=== PATIENT | male | born 1995 | race Hispanic/Latino ===

== ENCOUNTER 2017-05-04 10:18 | Emergency (ER) | payer SELFPAY ==
[2017-05-04] MEDS ORDERED: Bupivacaine 0.5% 10 ML VIAL ONE (10:33)
== END 2017-05-04 10:57 | disposition home or self-care (01) ==
LOC: SCSER 10:18
DX: L05.01 Pilonidal cyst with abscess (principal); E03.9 Hypothyroidism, unspecified
CPT/HCPCS: 10080; J3490

== ENCOUNTER 2018-01-26 13:34 | Emergency (ER) | payer SELFPAY ==
[2018-01-26] MEDS ORDERED: Fluorescein Opthalmic Strip ONE (14:41)
[2018-01-26] MEDS ORDERED: Proparacaine 0.5% Opth 15 ML BOT ONE (14:41)
== END 2018-01-26 15:15 | disposition home or self-care (01) ==
LOC: ERS 13:34
DX: H10.9 Unspecified conjunctivitis (principal); E03.9 Hypothyroidism, unspecified; Z79.899 Other long term (current) drug therapy
CPT/HCPCS: 99282

== ENCOUNTER 2020-06-28 21:41 | Observation (INO) | payer SELFPAY ==
[2020-06-28] MEDS ORDERED: Acetaminophen 500 MG TAB ONE (22:04)
[2020-06-28 22:57] LABS: #Eosinphils 0.1 thou/uL (0.0-0.7); #Lymphocytes 1.1 thou/uL (1.20-3.40); #Monocytes 0.8 thou/uL (0.11-0.59); #Neutrophils 6.9 thou/uL (1.40-6.50); %Basophils 0.1 % (0.0-1.0); %Eosinophils 0.9 % (0.0-10.0); %Lymphocytes 12.2 % (21.0-51.0); %Neutrophils 77.7 % (42.0-75.0); Hemoglobin 14.5 g/dL (14.0-18.0); Mean Corpuscular HGB CONC 31.8 g/dL (32.0-36.0); Mean Corpuscular Hemoglobin 26.6 pg (27.0-31.0); Mean Corpuscular Volume 83.7 fL (78.0-98.0); Platelet Count 187 thou/uL (130-400); RBC Distribution Width 12.7 % (11.5-14.5); Red Blood Cell (RBC) Count 5.46 mill/uL (4.70-6.10); White Blood Cell (WBC) Count 8.9 thou/uL (4.8-10.8)
[2020-06-28 23:19] LABS: ALT (SGPT) 102 U/L (8-55); AST (SGOT) 49 U/L (5-34); Albumin 4.1 g/dL (3.5-5.0); Alkaline Phosphatase 100 U/L (40-110); Anion Gap 13 mmol/L (10-20); BUN (Urea Nitrogen) 8 mg/dL (8.9-20.6); Bilirubin, Total 0.2 mg/dL (0.2-1.2); Calc. Creatinine Clearance 0 mL/min (70-130); Calcium 8.8 mg/dL (7.8-10.44); Carbon Dioxide 26 mmol/L (22-29); Chloride 104 mmol/L (98-107); Globulin 3.1 g/dL (2.4-3.5); Glucose 99 mg/dL (70-105); Potassium 4.2 mmol/L (3.5-5.1); Protein, Total 7.2 g/dL (6.0-8.3); Sodium 139 mmol/L (136-145)
--- NOTE | 2020-06-29 00:15 | RAD ---
EXAM: CHEST ONE VIEW HISTORY: Covid positive. Increasing shortness of breath. COMPARISON: 12/10/2013 FINDINGS: The heart is enlarged. Pulmonary vasculature is within normal limits. This exam is underpenetrated li miting evaluation of the lungs, but no obvious parenchymal opacity is able to be delineated and there is no pleural effusion seen. The osseous structures are intact. IMPRESSION: 1. Cardiomegaly. 2. No acute cardiopulmonary process. Chest radiographs exhibit low sensitivity for subtle groundglass opacities which can be seen with Covid pneumonia.
[2020-06-29] MEDS ORDERED: Ketorolac Tromethamine 30 MG/ML VIAL ONE (00:32)
[2020-06-29] MEDS ORDERED: Ondansetron ODT 4 MG TAB SL PRN (05:45)
[2020-06-29] MEDS ORDERED: Ondansetron PF 4 MG/2 ML Vial IVP PRN (05:45)
[2020-06-29] MEDS ORDERED: Acetaminophen 325 MG TAB PO PRN (05:45)
--- NOTE | 2020-06-29 07:54 | CT ---
PRELIMINARY REPORT/[facility]/EMERGENCY AFTER HOURS PROCEDURE: Receipt of this report by the clinical staff was confirmed with Alia David MD by Rhett Churchill on Jun 29, 2020 01:48:00 TECHNICIAN PREVENTATIVE MEDICINE. Addendum electronically signed by Viviana Churchill on June 29, 2020 1:48:[address]IAN PREVENTATIVE MEDICINE CT ANGIOGRAM OF THE CHEST WITH IV CONTRAST CLINICAL HISTORY: Cough, intermittent headaches, loss of taste and smell, and shortness of breath TECHNIQUE: Serial axial images obtained. Sagittal reconstructed images obtained. Coronal reconstructed images obtained. For CTA 3D image post-processing, MIPs were performed. Exam is performed with 86 mL of Isovue-370 intravenous contrast. Per PQRS, CT exam is performed using one or more of the following dose reduction techniques: Automate d exposure control, adjustment of the mA and/or KV according to patient size, or use of iterative rec onstruction techniques. COMPARISON: None FINDINGS: Suboptimal evaluation due to motion artifact. Suboptimal evaluation due to suboptimal opacification o f the pulmonary arteries. No gross pulmonary embolism is seen within the limits of the exam. Negative for aortic aneurysm or aortic dissection. There is normal caliber of the pulmonary artery trunk in relation to the aorta. A normal-sized heart is seen. No pleural effusion. Patchy infiltrates in bilateral lung quintanilla are seen suggesting early pneumonia. Imaging features can be seen with early (COVID-19) pneumonia, though are nonspecific and can occur with a variety of infe ctious and noninfectious processes. Negative for pneumothorax. Mild fatty infiltration of the liver is seen. Moderate disc space narrowing and osteophyte formation of the thoracic spine is seen at multiple leve ls. The rest of the solid organs, viscera and bones are unremarkable. IMPRESSION: 1. Patchy infiltrates in bilateral lung quintanilla are seen suggesting early pneumonia. Imaging features can be seen with early (COVID-19) pneumonia, though are nonspecific and can occur with a variety of i nfectious and noninfectious processes. 2. No gross pulmonary embolism is seen within the limits of the exam. Negative for aortic aneurysm or aortic dissection. ELECTRONICALLY SIGNED BY: Romero Carreon MD Jun 29, 2020 1:44:06 AM TECHNICIAN PREVENTATIVE MEDICINE This report is intended for review by the ordering physician only, in accordance of law. If you recei ve this report in error, please call [facility] at [phone]. FINAL REPORT EMERGENCY AFTER HOURS CTA CHEST: Axial tomograms obtained with multiplanar reconstruction and 3D postprocessing. FINDINGS/IMPRESSION: No evidence of proximal pulmonary embolus. There are patchy somewhat nodular ground-glass opacities seen bilaterally, concerning for COVID pneum onia. I am in agreement with the preliminary report issued by [facility]. POS: MATILDEW
[2020-06-29] MEDS ORDERED: Calcium Carbonate 500 MG ChewTAB PO PRN (09:00)
[2020-06-29] MEDS ORDERED: HYDROcodone/Acetaminophen 5/325 mg Tablet PO PRN (09:00)
[2020-06-29] MEDS ORDERED: Bisacodyl 5 MG TAB PO PRN (09:00)
[2020-06-29] MEDS ORDERED: Senokot S 8.6-50 MG TAB PO PRN (09:00)
--- NOTE | 2020-06-29 09:05 | PDOC.HHP ---
Hospitalist HPI Short of breath History of Present Illness: Patient history pleasant 24 years old gentleman who has significant past medical history of morbid obesity with BMI of 74, hypothyroidism, who presented to ED with complaint of short of breath. His symptoms including generalized fatigue, and loss of sense of taste started about 1 week ago, and tested positive 4 days ago for Covid. Initial work-up in the ED, including CTA chest, was negative for PE. However it did show evidence of early bilateral infiltrate consistent with history of COVID-19 infection. He also found slightly hypoxic on room air. Given his comorbidities including morbid obesity, hospitalist was asked to admit the patient for further management. Patient report that he lives with his cousin, who was also tested positive for Covid. Allergies/Adverse Reactions: Allergy/AdvReac Type Severity Reaction Status Date / Time No Known Drug Allergies Allergy Verified 06/29/20 05:48 Home Medications: Medication Instructions Recorded Confirmed Type Levothyroxine Sodium [Synthroid] 50 mcg PO DAILY 06/29/20 06/29/20 History Past History: PMHx: 1. Hypothyroidism 2. Morbid obesity with BMI of 74 PSHx: 1. None FHx: 1. Significant for mother with history of diabetes Social: Patient denies of smoking, alcohol, or recreational drug use. Hospitalist HPI ROS Other: Complete review of systems have been assessed and discussed with the patient. Negative and positive pertinent symptoms noted in the HPI; ALL other systems are reviewed and negative. Hospitalist Exam Vitals: Vital Signs (12 hours) Temp Pulse Resp BP Pulse Ox 06/29/20 08:00 98 F 06/29/20 07:59 98.5 F 105 H 18 128/79 92 L 06/29/20 05:36 98.7 F 110 H 22 H 137/83 93 L Weight Weight 459 lb 1.6 oz General Appearance: NAD Eye: PERRL ENT: normocephalic atraumatic Neck: supple Heart: RRR Respiratory: CTAB Gastrointestinal: soft Extremities: no cyanosis Skin: normal turgor Neurological: cranial nerve grossly intact Psychiatric: normal affect, normal behavior, A&O x 3 Hospitalist Results Result Diagrams: 06/28/20 22:48 06/28/20 22:48 Lab results: Laboratory Last Values WBC 8.9 thou/uL (4.8-10.8) 06/28/20 22:48 RBC 5.46 mill/uL (4.70-6.10) 06/28/20 22:48 Hgb 14.5 g/dL (14.0-18.0) 06/28/20 22:48 Hct 45.7 % (42.0-52.0) 06/28/20 22:48 MCV 83.7 fL (78.0-98.0) 06/28/20 22:48 MCH 26.6 pg (27.0-31.0) L 06/28/20 22:48 MCHC 31.8 g/dL (32.0-36.0) L 06/28/20 22:48 RDW 12.7 % (11.5-14.5) 06/28/20 22:48 Plt Count 187 thou/uL (130-400) 06/28/20 22:48 MPV 7.0 fL (7.4-10.4) L 06/28/20 22:48 Neutrophils % 77.7 % (42.0-75.0) H 06/28/20 22:48 Lymphocytes % 12.2 % (21.0-51.0) L 06/28/20 22:48 Monocytes % 9.0 % (0.0-10.0) 06/28/20 22:48 Eosinophils % 0.9 % (0.0-10.0) 06/28/20 22:48 Basophils % 0.1 % (0.0-1.0) 06/28/20 22:48 Neutrophils # 6.9 thou/uL (1.40-6.50) H 06/28/20 22:48 Lymphocytes # 1.1 thou/uL (1.20-3.40) L 06/28/20 22:48 Monocytes # 0.8 thou/uL (0.11-0.59) H 06/28/20 22:48 Eosinophils # 0.1 thou/uL (0.0-0.7) 06/28/20 22:48 Basophils # 0.0 thou/uL (0.0-0.2) 06/28/20 22:48 Sodium 139 mmol/L (136-145) 06/28/20 22:48 Potassium 4.2 mmol/L (3.5-5.1) 06/28/20 22:48 Chloride 104 mmol/L (98-107) 06/28/20 22:48 Carbon Dioxide 26 mmol/L (22-29) 06/28/20 22:48 Anion Gap 13 mmol/L (10-20) 06/28/20 22:48 BUN 8 mg/dL (8.9-20.6) L 06/28/20 22:48 Creatinine 0.92 mg/dL (0.7-1.3) 06/28/20 22:48 Estimated GFR (MDRD) Greater than 90 06/28/20 22:48 Glucose 99 mg/dL (70-105) 06/28/20 22:48 Calcium 8.8 mg/dL (7.8-10.44) 06/28/20 22:48 Total Bilirubin 0.2 mg/dL (0.2-1.2) 06/28/20 22:48 AST 49 U/L (5-34) H 06/28/20 22:48 ALT 102 U/L (8-55) H 06/28/20 22:48 Alkaline Phosphatase 100 U/L (40-110) 06/28/20 22:48 Serum Total Protein 7.2 g/dL (6.0-8.3) 06/28/20 22:48 Albumin 4.1 g/dL (3.5-5.0) 06/28/20 22:48 Globulin 3.1 g/dL (2.4-3.5) 06/28/20 22:48 Albumin/Globulin Ratio 1.3 g/dL (1.2-2.2) 06/28/20 22:48 CT scan - chest Status: image reviewed by me, report reviewed by me Chest x-ray Status: image reviewed by me Additional Comments: Negative for acute cardiopulmonary process Hospitalist H&P A/P (1) Acute respiratory failure with hypoxia Code(s): J96.01 - ACUTE RESPIRATORY FAILURE WITH HYPOXIA Status: Acute (2) Pneumonia due to COVID-19 virus Code(s): U07.1 - COVID-19; J12.82 - PNEUMONIA DUE TO CORONAVIRUS DISEASE 2019 Status: Acute (3) Hypothyroidism Code(s): E03.9 - HYPOTHYROIDISM, UNSPECIFIED Status: Acute (4) Morbid obesity with BMI of 70 and over, adult Code(s): E66.01 - MORBID (SEVERE) OBESITY DUE TO EXCESS CALORIES; Z68.45 - BODY MASS INDEX [BMI] 70 OR GREATER, ADULT Status: Acute Plan: The patient is a pleasant 24 years old gentleman with significant past medical histories of hypothyroidism, morbid obesity with BMI of 74, presented to ED with 5-day history of short of breath, he was tested positive for Covid 3 days ago. Acute hypoxic respiratory failure secondary to COVID-19 pneumonia -His symptoms appear to be mild, however he has significant risk factor given his super morbid obesity. We will continue with O2 supplement, wean as tolerated. -Start on Decadron, vitamin C/D/zinc. -Lovenox for DVT prophylaxis. PPI for GI ppx. Pneumonia due to COVID-19 -Management as above Hypothyroidism -Resume home medication, levothyroxine Morbid obesity with BMI of 24 -Aggressive risk factor modification is recommended
[2020-06-29] MEDS ORDERED: Polyethylene Glycol 3350 17 GM Packet PO PRN (09:20)
[2020-06-29] MEDS: Dexamethasone 4 mg/ml Vial SLOW IVP SCH (09:28)
[2020-06-29] MEDS: Enoxaparin Sodium 40 MG/0.4 ML SYRINGE SC SCH ×2 (09:28→21:22)
[2020-06-29] MEDS: Zinc Sulfate 220 MG CAP PO SCH (09:28)
[2020-06-29] MEDS: Ascorbic Acid 500 mg Chewable Tablet PO SCH (09:34)
[2020-06-29] MEDS ORDERED: Iopamidol-370 76% 500 ML 1 ML ONE (10:02)
[2020-06-29] MEDS ORDERED: Benzonatate 100 MG CAP PO PRN (16:33)
[2020-06-29] MEDS ORDERED: guaiFENesin/Codeine 200 mg/20 mg 10 ml Cup PO PRN (16:33)
[2020-06-29] MEDS ORDERED: Prevnar 13-Val Conj/PF 0.5 ML SYRINGE IM ONE (21:00)
[2020-06-29] MEDS: guaiFENesin ER 600 MG TAB PO SCH (21:22)
[2020-06-30 05:14] VITALS: BMI 73.7
[2020-06-30] MEDS ORDERED: Levothyroxine Sodium 50 MCG TAB PO SCH (06:00)
[2020-06-30 06:16] LABS: Chloride 104 mmol/L (98-107); Potassium 4.2 mmol/L (3.5-5.1); Sodium 139 mmol/L (136-145)
[2020-06-30 06:19] LABS: ALT (SGPT) 90 U/L (8-55); AST (SGOT) 44 U/L (5-34); Alkaline Phosphatase 84 U/L (40-110); BUN (Urea Nitrogen) 12 mg/dL (8.9-20.6); Bilirubin, Total 0.3 mg/dL (0.2-1.2); Calc. Creatinine Clearance 381 mL/min (70-130); Calcium 9.1 mg/dL (7.8-10.44); Carbon Dioxide 25 mmol/L (22-29); Globulin 3.2 g/dL (2.4-3.5); Glucose 103 mg/dL (70-105); Protein, Total 7.2 g/dL (6.0-8.3)
[2020-06-30 06:22] LABS: Anion Gap 14 mmol/L (10-20)
[2020-06-30] MEDS: Ascorbic Acid 500 mg Chewable Tablet PO SCH (08:35)
[2020-06-30] MEDS: Enoxaparin Sodium 40 MG/0.4 ML SYRINGE SC SCH (08:35)
[2020-06-30] MEDS: Dexamethasone 4 mg/ml Vial SLOW IVP SCH (08:35)
[2020-06-30] MEDS: Zinc Sulfate 220 MG CAP PO SCH (08:35)
[2020-06-30] MEDS: guaiFENesin ER 600 MG TAB PO SCH (08:35)
[2020-06-30] MEDS ORDERED: Cholecalciferol (Vitamin D3) 400 UNITS TAB PO SCH (09:00)
--- NOTE | 2020-06-30 10:30 | PDOC.DS.DS ---
Provider Date of Admission: 06/29/20 05:31 Date of Discharge: 06/30/20 Admitting Provider: Navi Parisi MD Consultations: None Primary Care Physician: KAREN LEVY MD Course Hospital Course: Patient is a pleasant 24 years old gentleman who has significant past medical history of morbid obesity with BMI of 74, hypothyroidism, who presented to ED with complaint of short of breath. His symptoms including generalized weakness, loss sense of taste about a week ago, he was tested positive for Covid about 4 days prior to admission. Initial work-up in the ED including CTA chest was negative for PE. However, it did show that early bilateral infiltrate consistent with COVID-19 infection. He was found hypoxic with exertion. For that reason hospitalist was asked to admit the patient for observation. Patient was placed on Decadron, vitamin C/D/zinc. He was able to wean off to with room air. He is feeling better, this time, patient stable to discharge home with taper steroid and empiric abx for 5 days. Return to ED if symptoms recurs or worsen. Resuscitation Status: 06/29/20 09:00 Resuscitation Status Routine Resuscitation Status: FULL: Full Resuscitation Lab Results: 06/28/20 22:48 06/30/20 05:09 Abnormal Lab Results - Last 48 hrs 06/28/20 22:48: BUN 8 L, AST 49 H, ALT 102 H 06/28/20 22:48: MCH 26.6 L, MCHC 31.8 L, MPV 7.0 L, Neutrophils % 77.7 H, Lymphocytes % 12.2 L, Neutrophils # 6.9 H, Lymphocytes # 1.1 L, Monocytes # 0.8 H 06/30/20 05:09: AST 44 H, ALT 90 H Vitals: Vital Signs (12 hours) Temp Pulse Resp BP BP Pulse Ox 06/30/20 07:57 98.0 F 93 16 140/83 97 06/30/20 05:39 97.5 F L 91 18 149/78 H 93 L 06/30/20 00:00 98.5 F 87 18 149/77 H 91 L Weight Weight 457 lb Physical Exam: The patient was seen and examined on the day of discharge. General Appearance: NAD Eye: PERRL ENT: normocephalic atraumatic Neck: supple Respiratory: CTAB Cardiovascular: RRR Gastrointestinal: soft Extremities: no cyanosis Problem (1) Acute respiratory failure with hypoxia Code(s): J96.01 - ACUTE RESPIRATORY FAILURE WITH HYPOXIA Status: Acute (2) Pneumonia due to COVID-19 virus Code(s): U07.1 - COVID-19; J12.82 - PNEUMONIA DUE TO CORONAVIRUS DISEASE 2019 Status: Acute (3) Hypothyroidism Code(s): E03.9 - HYPOTHYROIDISM, UNSPECIFIED Status: Acute (4) Morbid obesity with BMI of 70 and over, adult Code(s): E66.01 - MORBID (SEVERE) OBESITY DUE TO EXCESS CALORIES; Z68.45 - BODY MASS INDEX [BMI] 70 OR GREATER, ADULT Status: Acute Time Spent in discharge related activities (mins): 30 Plan Prescriptions: Doxycycline Hyclate 100 mg PO Q12HR #10 tablet predniSONE 10 mg PO QAM-WM #30 tab Home Medications: Medication Instructions Recorded Confirmed Type Levothyroxine Sodium [Synthroid] 50 mcg PO DAILY 06/29/20 06/29/20 History Doxycycline Hyclate 100 mg PO Q12HR #10 tablet 06/30/20 Rx predniSONE 10 mg PO QAM-WM #30 tab 06/30/20 Rx Allergies: No Known Drug Allergies Allergy (Verified 06/29/20 05:48) PER ER NOTES Activity:: Activity as Tolerated Referrals: KAREN LEVY [Primary Care Provider] - 7 Days Disposition: HOME Quality CORE MEASURES:: N/A
[2020-06-30 11:35] VITALS: BP 145/84; TEMP 98.1
--- NOTE | 2020-07-01 21:19 | EKG ---
Test Reason : Blood Pressure : / mmHG Vent. Rate : 109 BPM Atrial Rate : 109 BPM P-R Int : 114 ms QRS Dur : 096 ms QT Int : 338 ms P-R-T Axes : 022 023 035 degrees QTc Int : 455 ms Sinus tachycardia Otherwise normal ECG Confirmed by JIN PHILLIPS ([id number]), website/blog editor TERRIE BELL ([id number]) on 07/01/2020 9:19:27 PM Referred By: JOSE EDUARDO PHILLIPS Confirmed By:JIN PHILLIPS
== END 2020-06-30 13:11 | disposition home or self-care (01) ==
LOC: ERS 21:41 → T4-B 06-29 05:31
PROVIDERS: ADMIT Student in an Organized Health Care Education/Training Program; ATTEND Family Medicine
DX: U07.1 COVID-19 (principal); J12.82 Pneumonia due to coronavirus disease 2019; J96.01 Acute respiratory failure with hypoxia; E03.9 Hypothyroidism, unspecified; F12.11 Cannabis abuse, in remission; E66.01 Morbid (severe) obesity due to excess calories; Z68.45 Body mass index [BMI] 70 or greater, adult; Z79.899 Other long term (current) drug therapy
CPT/HCPCS: 36415; 71045; 71275; 80053; 85025; 93005; 96372; 96374; 96375; 96376; G0378; J1100; J1650; J1885; Q9967

== ENCOUNTER 2020-07-04 03:24 | Inpatient (IN) | payer OTHER, SELFPAY ==
[2020-07-04] MEDS ORDERED: Dexamethasone 10 MG/ML VIAL ONE (04:19)
[2020-07-04 04:21] LABS: #Lymphocytes 1.7 thou/uL (1.20-3.40); #Monocytes 1.2 thou/uL (0.11-0.59); #Neutrophils 13.2 thou/uL (1.40-6.50); %Basophils 0.1 % (0.0-1.0); %Eosinophils 0.1 % (0.0-10.0); %Lymphocytes 10.8 % (21.0-51.0); %Monocytes 7.1 % (0.0-10.0); %Neutrophils 81.8 % (42.0-75.0); Hemoglobin 13.7 g/dL (14.0-18.0); Mean Corpuscular HGB CONC 32.3 g/dL (32.0-36.0); Mean Corpuscular Hemoglobin 27.1 pg (27.0-31.0); Mean Corpuscular Volume 83.8 fL (78.0-98.0); Mean Platelet Volume 6.8 fL (7.4-10.4); Platelet Count 213 thou/uL (130-400); RBC Distribution Width 12.5 % (11.5-14.5); Red Blood Cell (RBC) Count 5.05 mill/uL (4.70-6.10); White Blood Cell (WBC) Count 16.1 thou/uL (4.8-10.8)
[2020-07-04] MEDS ORDERED: Acetaminophen 500 MG TAB ONE (04:21)
[2020-07-04] MEDS ORDERED: Enoxaparin Sodium 100 MG/ML SYRINGE ONE ×3 (04:21→05:34)
[2020-07-04 04:28] LABS: PTT 26.8 sec (22.9-36.1); Prothrombin Time 13.2 sec (12.0-14.7)
[2020-07-04 04:29] LABS: D-Dimer Test 0.29 *mcg/mL (0.27-0.43)
[2020-07-04 04:44] LABS: ALT (SGPT) 81 U/L (8-55); AST (SGOT) 38 U/L (5-34); Albumin 3.7 g/dL (3.5-5.0); Alkaline Phosphatase 74 U/L (40-110); Anion Gap 16 mmol/L (10-20); BUN (Urea Nitrogen) 11 mg/dL (8.9-20.6); Bilirubin, Total 0.4 mg/dL (0.2-1.2); Calc. Creatinine Clearance 0 mL/min (70-130); Calcium 8.7 mg/dL (7.8-10.44); Carbon Dioxide 24 mmol/L (22-29); Chloride 101 mmol/L (98-107); Globulin 3.2 g/dL (2.4-3.5); Glucose 97 mg/dL (70-105); Potassium 3.9 mmol/L (3.5-5.1); Protein, Total 6.9 g/dL (6.0-8.3); Sodium 137 mmol/L (136-145)
[2020-07-04 05:00] LABS: Base Excess-Venous 1.1 mmol/L (-2.0 to 3.0); Bicarbonate (HCO3v) 24.5 mmol/L (22.0-28.0); CO2 Tension (PvCO2) 34.7 mmHg (40.0-50.0); Calcium, Ionized 0.97 mmol/L (1.15-1.33); Chloride 99 mmol/L (98-107); Hemoglobin - Calc 14.9 g/dL (14.0-18.0); Sodium 136 mmol/L (138-145); T. Carbon Dioxide 25.6 mmol/L (22.0-28.0); vO2 Saturation-calc 96.7 % (60.0-85.0)
[2020-07-04] MEDS ORDERED: Ondansetron PF 4 MG/2 ML Vial IVP PRN (05:51)
[2020-07-04] MEDS ORDERED: Senokot S 8.6-50 MG TAB PO PRN (05:51)
[2020-07-04] MEDS ORDERED: cefTRIAXone\\ROCEPHIN 1 GM in Sodium Chloride 0.9% 100 ML IVPB SCH (06:00)
[2020-07-04] MEDS ORDERED: methylPREDNISolone Sod Succ/PF 125 MG/2 ML VIAL IVP SCH (06:00)
[2020-07-04] MEDS ORDERED: Lorazepam 2 MG/ML VIAL ONE (06:15)
[2020-07-04] MEDS ORDERED: Vancomycin 1 GM/200 ML BAG ONE (06:20)
[2020-07-04] MEDS ORDERED: Ondansetron PF 4 MG/2 ML Vial ONE (06:20)
[2020-07-04] MEDS ORDERED: Sodium Chloride 0.9% 100 ML ONE (06:20)
[2020-07-04] MEDS ORDERED: Cefepime 2 GM VIAL ONE (06:20)
[2020-07-04] MEDS ORDERED: Morphine 4 MG/ML VIAL ONE (06:20)
[2020-07-04 07:47] LABS: Bilirubin Negative (Negative); Blood, Urine Negative (Negative); Clarity Clear (Clear); Glucose, Urine (Dipstick) Normal (Negative); Ketone, Urine Negative (Negative); Leukocyte Negative Leu/uL (Negative); Nitrite Negative (Negative); Protein, Urine (Dipstick) 100 mg/dL (Neg-Trace); RBC/HPF 0-3 HPF (0-3); Squamous Epithelial 0-3 HPF (0-3); Urobilinogen Normal mg/dL (Less than 2); WBC/HPF 0-3 HPF (0-3)
[2020-07-04 07:51] LABS: Bacteria/HPF 1+ HPF (None Seen)
[2020-07-04] MEDS ORDERED: Famotidine/PF 20 mg/2ml Vial SLOW IVP SCH (09:00)
[2020-07-04] MEDS ORDERED: Ivermectin 3 MG TAB PO SCH (09:00)
[2020-07-04] MEDS: Enoxaparin Sodium 40 MG/0.4 ML SYRINGE SC SCH ×2 (09:05→21:17)
[2020-07-04 09:06] LABS: Troponin I 0.011 ng/mL (< 0.028)
[2020-07-04] MEDS ORDERED: cefTRIAXone\\ROCEPHIN 1 GM VIAL ONE (09:34)
[2020-07-04] MEDS: Zinc Sulfate 220 MG CAP PO SCH (10:47)
[2020-07-04] MEDS: guaiFENesin ER 600 MG TAB PO SCH ×2 (10:47→21:17)
[2020-07-04] MEDS: Levothyroxine Sodium 50 MCG TAB PO SCH (10:47)
[2020-07-04 11:03] LABS: SARS-CoV-2 PCR by NAA DETECTED (NotDetected)
[2020-07-04 11:37] LABS: Troponin I Less than 0.010 ng/mL (< 0.028)
[2020-07-04] MEDS ORDERED: Albuterol 200 PUFF (6.7GM INHALER) ONE (11:54)
[2020-07-04] MEDS: Ipratropium/Albuterol Sulfate 4 GM AER IH SCH ×3 (14:55→22:30)
[2020-07-04 16:53] VITALS: BMI 73.2
[2020-07-04] MEDS: Acetaminophen 325 MG TAB PO PRN (22:15)
[2020-07-04] MEDS: HYDROcodone/Acetaminophen 7.5/325 mg Tablet PO PRN (22:20)
[2020-07-05] MEDS: Ipratropium/Albuterol Sulfate 4 GM AER IH SCH ×5 (03:23→18:24)
[2020-07-05] MEDS: HYDROcodone/Acetaminophen 7.5/325 mg Tablet PO PRN (03:35)
[2020-07-05] MEDS: Acetaminophen 325 MG TAB PO PRN ×3 (03:35→20:17)
[2020-07-05 04:51] LABS: ALT (SGPT) 64 U/L (8-55); AST (SGOT) 36 U/L (5-34); Albumin 3.7 g/dL (3.5-5.0); Alkaline Phosphatase 70 U/L (40-110); Anion Gap 14 mmol/L (10-20); BUN (Urea Nitrogen) 12 mg/dL (8.9-20.6); Bilirubin, Total 0.4 mg/dL (0.2-1.2); Calc. Creatinine Clearance 401 mL/min (70-130); Carbon Dioxide 23 mmol/L (22-29); Chloride 102 mmol/L (98-107); Globulin 3.4 g/dL (2.4-3.5); Glucose 134 mg/dL (70-105); Potassium 4.3 mmol/L (3.5-5.1); Protein, Total 7.1 g/dL (6.0-8.3); Sodium 135 mmol/L (136-145)
[2020-07-05 04:55] LABS: Band 7 % (5-11); Hemoglobin 13.6 g/dL (14.0-18.0); Lymphocytes 7 % (21-51); MDiff Complete? YES; Mean Corpuscular HGB CONC 31.3 g/dL (32.0-36.0); Mean Corpuscular Hemoglobin 26.2 pg (27.0-31.0); Mean Corpuscular Volume 83.8 fL (78.0-98.0); Mean Platelet Volume 6.9 fL (7.4-10.4); Monocytes 5 % (0-10); Neutrophil 81 % (42-75); Platelet Count 238 thou/uL (130-400); Platelet Morphology Comment Appears Adequate; RBC Distribution Width 12.6 % (11.5-14.5); RBC Morphology Normal; White Blood Cell (WBC) Count 17.2 thou/uL (4.8-10.8)
[2020-07-05] MEDS: Levothyroxine Sodium 50 MCG TAB PO SCH (07:57)
[2020-07-05] MEDS: guaiFENesin ER 600 MG TAB PO SCH ×2 (07:58→20:17)
[2020-07-05] MEDS: Enoxaparin Sodium 40 MG/0.4 ML SYRINGE SC SCH ×2 (07:58→20:19)
[2020-07-05] MEDS: Zinc Sulfate 220 MG CAP PO SCH (08:08)
[2020-07-05] MEDS: GUAIFENESIN SF SOLN 200 MG/10 ML UDCUP PO PRN ×2 (20:14→20:20)
[2020-07-05] MEDS: Colchicine 0.6 MG TAB PO SCH (20:17)
[2020-07-06] MEDS: Ipratropium/Albuterol Sulfate 4 GM AER IH SCH ×7 (00:16→23:16)
[2020-07-06] MEDS: GUAIFENESIN SF SOLN 200 MG/10 ML UDCUP PO PRN ×3 (03:46→22:39)
[2020-07-06] MEDS: Acetaminophen 325 MG TAB PO PRN ×3 (03:46→18:00)
[2020-07-06] MEDS: Levothyroxine Sodium 50 MCG TAB PO SCH (05:43)
[2020-07-06] MEDS: guaiFENesin ER 600 MG TAB PO SCH ×2 (08:14→20:57)
[2020-07-06] MEDS: Colchicine 0.6 MG TAB PO SCH ×2 (08:15→20:56)
[2020-07-06] MEDS: Enoxaparin Sodium 40 MG/0.4 ML SYRINGE SC SCH ×2 (08:15→20:56)
[2020-07-06] MEDS: Zinc Sulfate 220 MG CAP PO SCH (08:15)
[2020-07-06] MEDS: Melatonin 3 MG TAB PO PRN (22:39)
[2020-07-07] MEDS: Ipratropium/Albuterol Sulfate 4 GM AER IH SCH ×5 (04:18→20:11)
[2020-07-07] MEDS: Levothyroxine Sodium 50 MCG TAB PO SCH (06:45)
[2020-07-07 09:19] LABS: Hemoglobin 14.5 g/dL (14.0-18.0); Mean Corpuscular HGB CONC 31.8 g/dL (32.0-36.0); Mean Corpuscular Hemoglobin 26.4 pg (27.0-31.0); Mean Corpuscular Volume 83.1 fL (78.0-98.0); Mean Platelet Volume 6.3 fL (7.4-10.4); Platelet Count 352 thou/uL (130-400); RBC Distribution Width 12.6 % (11.5-14.5); Red Blood Cell (RBC) Count 5.48 mill/uL (4.70-6.10)
[2020-07-07 09:31] LABS: ALT (SGPT) 115 U/L (8-55); AST (SGOT) 46 U/L (5-34); Albumin 3.7 g/dL (3.5-5.0); Alkaline Phosphatase 67 U/L (40-110); Anion Gap 15 mmol/L (10-20); BUN (Urea Nitrogen) 17 mg/dL (8.9-20.6); Bilirubin, Total 0.5 mg/dL (0.2-1.2); CRP (Inflammatory) 1.47 mg/dL (= or < 0.5); Calc. Creatinine Clearance 378 mL/min (70-130); Calcium 8.9 mg/dL (7.8-10.44); Carbon Dioxide 23 mmol/L (22-29); Chloride 103 mmol/L (98-107); Globulin 3.4 g/dL (2.4-3.5); Glucose 102 mg/dL (70-105); Potassium 4.4 mmol/L (3.5-5.1); Protein, Total 7.1 g/dL (6.0-8.3); Sodium 137 mmol/L (136-145)
[2020-07-07 09:58] LABS: Band 6 % (5-11); Lymphocytes 14 % (21-51); MDiff Complete? YES; Monocytes 6 % (0-10); Neutrophil 72 % (42-75); RBC Morphology Normal; Reactive Lymphocytes 2 % (0-10)
[2020-07-07] MEDS: Enoxaparin Sodium 40 MG/0.4 ML SYRINGE SC SCH ×2 (10:43→20:12)
[2020-07-07] MEDS: Colchicine 0.6 MG TAB PO SCH ×2 (10:43→20:12)
[2020-07-07] MEDS: Zinc Sulfate 220 MG CAP PO SCH (10:44)
[2020-07-07] MEDS: guaiFENesin ER 600 MG TAB PO SCH ×2 (10:44→20:12)
[2020-07-07] MEDS: GUAIFENESIN SF SOLN 200 MG/10 ML UDCUP PO PRN ×2 (12:03→21:05)
[2020-07-07] MEDS: Acetaminophen 325 MG TAB PO PRN (16:13)
[2020-07-07] MEDS: Melatonin 3 MG TAB PO PRN (20:12)
[2020-07-08] MEDS: Acetaminophen 325 MG TAB PO PRN ×2 (02:40→21:59)
[2020-07-08] MEDS: GUAIFENESIN SF SOLN 200 MG/10 ML UDCUP PO PRN (02:40)
[2020-07-08] MEDS: Ipratropium/Albuterol Sulfate 4 GM AER IH SCH ×7 (02:53→21:58)
[2020-07-08 05:37] LABS: Band 9 % (5-11); Hemoglobin 14.2 g/dL (14.0-18.0); Lymphocytes 10 % (21-51); MDiff Complete? YES; Mean Corpuscular HGB CONC 32.2 g/dL (32.0-36.0); Mean Corpuscular Hemoglobin 26.7 pg (27.0-31.0); Mean Corpuscular Volume 82.8 fL (78.0-98.0); Mean Platelet Volume 6.6 fL (7.4-10.4); Metamyelocyte 2 % (0-0); Monocytes 4 % (0-10); Neutrophil 75 % (42-75); Platelet Count 329 thou/uL (130-400); RBC Distribution Width 12.6 % (11.5-14.5); Red Blood Cell (RBC) Count 5.31 mill/uL (4.70-6.10); White Blood Cell (WBC) Count 22.5 thou/uL (4.8-10.8)
[2020-07-08] MEDS: Levothyroxine Sodium 50 MCG TAB PO SCH (05:41)
[2020-07-08 06:06] LABS: Albumin 3.7 g/dL (3.5-5.0)
[2020-07-08 06:07] LABS: Chloride 104 mmol/L (98-107); Potassium 4.7 mmol/L (3.5-5.1); Sodium 137 mmol/L (136-145)
[2020-07-08 06:08] LABS: Calcium 8.8 mg/dL (7.8-10.44); Glucose 110 mg/dL (70-105)
[2020-07-08 06:09] LABS: Globulin 3.3 g/dL (2.4-3.5)
[2020-07-08 06:10] LABS: Anion Gap 15 mmol/L (10-20); Bilirubin, Total 0.4 mg/dL (0.2-1.2); Carbon Dioxide 23 mmol/L (22-29)
[2020-07-08 06:11] LABS: Alkaline Phosphatase 67 U/L (40-110)
[2020-07-08 06:12] LABS: BUN (Urea Nitrogen) 18 mg/dL (8.9-20.6); Calc. Creatinine Clearance 365 mL/min (70-130)
[2020-07-08 06:14] LABS: ALT (SGPT) 152 U/L (8-55); AST (SGOT) 52 U/L (5-34)
[2020-07-08] MEDS: Enoxaparin Sodium 40 MG/0.4 ML SYRINGE SC SCH ×2 (08:58→20:11)
[2020-07-08] MEDS: guaiFENesin ER 600 MG TAB PO SCH ×2 (08:58→20:11)
[2020-07-08] MEDS: Colchicine 0.6 MG TAB PO SCH ×2 (08:59→20:11)
[2020-07-08] MEDS: Zinc Sulfate 220 MG CAP PO SCH (08:59)
[2020-07-09] MEDS: Ipratropium/Albuterol Sulfate 4 GM AER IH SCH ×5 (02:03→18:01)
[2020-07-09] MEDS: Levothyroxine Sodium 50 MCG TAB PO SCH (06:14)
[2020-07-09] MEDS: GUAIFENESIN SF SOLN 200 MG/10 ML UDCUP PO PRN (06:14)
[2020-07-09] MEDS: Enoxaparin Sodium 40 MG/0.4 ML SYRINGE SC SCH ×2 (09:11→21:51)
[2020-07-09] MEDS: guaiFENesin ER 600 MG TAB PO SCH ×2 (09:11→21:51)
[2020-07-09] MEDS: Zinc Sulfate 220 MG CAP PO SCH (09:11)
[2020-07-09] MEDS: Colchicine 0.6 MG TAB PO SCH (09:11)
[2020-07-10] MEDS: GUAIFENESIN SF SOLN 200 MG/10 ML UDCUP PO PRN (00:01)
[2020-07-10] MEDS: Melatonin 3 MG TAB PO PRN (00:01)
[2020-07-10] MEDS: Acetaminophen 325 MG TAB PO PRN (00:01)
[2020-07-10 00:43] VITALS: BP 110/55; TEMP 97.3
[2020-07-10] MEDS ORDERED: Zinc Sulfate 220 MG CAP ONE (09:00)
[2020-07-10] MEDS ORDERED: guaiFENesin ER 600 MG TAB ONE (09:00)
[2020-07-10] MEDS ORDERED: Enoxaparin Sodium 40 MG/0.4 ML SYRINGE ONE (09:00)
[2020-07-10] MEDS: Levothyroxine Sodium 50 MCG TAB PO SCH (14:56)
[2020-07-10 14:58] LABS: Hemoglobin 14.4 g/dL (14.0-18.0); Mean Corpuscular HGB CONC 31.4 g/dL (32.0-36.0); Mean Corpuscular Hemoglobin 26.3 pg (27.0-31.0); Mean Corpuscular Volume 83.6 fL (78.0-98.0); Mean Platelet Volume 6.6 fL (7.4-10.4); Platelet Count 357 thou/uL (130-400); Red Blood Cell (RBC) Count 5.47 mill/uL (4.70-6.10); White Blood Cell (WBC) Count 22.8 thou/uL (4.8-10.8)
[2020-07-10 14:59] LABS: Band 7 % (5-11); Lymphocytes 11 % (21-51); Metamyelocyte 1 % (0-0); Monocytes 8 % (0-10)
[2020-07-10 15:00] LABS: RBC Morphology Normal
[2020-07-10 15:01] LABS: Neutrophil 74 % (42-75)
[2020-07-10] MEDS: Enoxaparin Sodium 40 MG/0.4 ML SYRINGE SC SCH (15:11)
[2020-07-10] MEDS: guaiFENesin ER 600 MG TAB PO SCH (15:11)
[2020-07-10] MEDS: Zinc Sulfate 220 MG CAP PO SCH (15:11)
[2020-07-10 16:25] LABS: ALT (SGPT) 220 U/L (8-55); AST (SGOT) 44 U/L (5-34); Albumin 3.7 g/dL (3.5-5.0); Alkaline Phosphatase 66 U/L (40-110); Anion Gap 15 mmol/L (10-20); BUN (Urea Nitrogen) 20 mg/dL (8.9-20.6); Bilirubin, Total 0.4 mg/dL (0.2-1.2); CRP (Inflammatory) Less than 0.50 mg/dL (= or < 0.5); Calc. Creatinine Clearance 361 mL/min (70-130); Carbon Dioxide 22 mmol/L (22-29); Chloride 104 mmol/L (98-107); Globulin 3.2 g/dL (2.4-3.5); Glucose 115 mg/dL (70-105); Potassium 4.7 mmol/L (3.5-5.1); Protein, Total 6.9 g/dL (6.0-8.3); Sodium 136 mmol/L (136-145)
[2020-07-10] MEDS: Ipratropium/Albuterol Sulfate 4 GM AER IH SCH ×3 (16:49→16:57)
== END 2020-07-10 17:32 | disposition home or self-care (01) | DRG 871 ==
LOC: ERS 03:24 → INTOOBSV 05:55 → ERHOLD 05:55 → 2SE 15:59 → OBSVTOIN 07-05 05:55
PROVIDERS: ADMIT Internal Medicine; ATTEND Emergency Medicine
PROC: 8E0ZXY6 Isolation (ICD-10-PCS; principal; 2020-07-05)
PROC: 5A09357 Assistance with Respiratory Ventilation, Less than 24 Consecutive Hours, Continuous Positive Airway Pressure (ICD-10-PCS; 2020-07-05)
DX: A41.89 Other specified sepsis (principal); U07.1 COVID-19; J12.82 Pneumonia due to coronavirus disease 2019; J96.01 Acute respiratory failure with hypoxia; E66.2 Morbid (severe) obesity with alveolar hypoventilation; Z68.45 Body mass index [BMI] 70 or greater, adult; D72.829 Elevated white blood cell count, unspecified; T38.0X5A Adverse effect of glucocorticoids and synthetic analogues, initial encounter; E03.9 Hypothyroidism, unspecified; Z79.890 Hormone replacement therapy; Z79.51 Long term (current) use of inhaled steroids; Z79.899 Other long term (current) drug therapy; Z82.49 Family history of ischemic heart disease and other diseases of the circulatory system
CPT/HCPCS: 36415; 71045; 80053; 81003; 81015; 82330; 82728; 82803; 83605; 83880; 84484; 85007; 85025; 85027; 85379; 85610; 85730; 86140; 87040; 87086; 87324; 87449; 87635; 93005; 96372; J0692; J0696; J1100; J1650; J2060; J2270; J2405; J3370; J3490; U0003; U0005

== ENCOUNTER 2024-03-12 16:24 | Emergency (ER) | payer SELFPAY ==
[2024-03-12] MEDS ORDERED: Ketorolac Tromethamine 30 MG (1 mL) VIAL ONE (17:18)
[2024-03-12] MEDS ORDERED: Lidocaine 4% Patch ONE (17:19)
== END 2024-03-12 18:08 | disposition home or self-care (01) ==
LOC: ERS 16:24
DX: M54.41 Lumbago with sciatica, right side (principal); E03.9 Hypothyroidism, unspecified; Z79.899 Other long term (current) drug therapy
CPT/HCPCS: 96372; 99282; J1885

== ENCOUNTER 2024-05-11 06:06 | Emergency (ER) | payer SELFPAY ==
[2024-05-11] MEDS ORDERED: Fluorescein Opthalmic Strip ONE (06:27)
[2024-05-11] MEDS ORDERED: Proparacaine 0.5% Opth 15 ML BOT ONE (06:28)
== END 2024-05-11 07:40 | disposition home or self-care (01) ==
LOC: ERS 06:06
DX: H57.89 Other specified disorders of eye and adnexa (principal)
CPT/HCPCS: 99283